=== PATIENT | female | born 1930 | race Native Hawaiian/Other Pacific Islander ===

== ENCOUNTER 2016-10-04 13:39 | Outpatient (CLI) | payer OTHER ==
[~2016-10-04 13:39] MED LIST: ALPR0.2566 PO; ALPR0.5T24 PO; AMLO5TAB PO; APRODINE1 TAB PO; BENA10TA3 PO; BENTYL10 MG PO; CARAFATE1 GM/10 ML PO; CYCL10TA35 PO; DICL75TA4 PO; DONE10TA4 PO; DRAMAMINE25 MG PO; FEMARA2.5 MG PO; METF500T PO; MISO200T2 PO; NAPROSYN375 MG PO; ONDA4TAB3 PO; PERP2TAB PO; RANI150T78 PO; SIMV20TA2 PO; TRAM50TA PO; VITAMIN D31000 UNI2 PO
== END 2016-10-04 23:47 | disposition home or self-care (01) ==
LOC: LAB 13:39
DX: N39.0 Urinary tract infection, site not specified (principal)
CPT/HCPCS: 81000; 87077; 87086; 87088; 87186

== ENCOUNTER 2016-11-07 15:25 | Outpatient (CLI) | payer OTHER | END 2016-11-07 19:24 | disposition home or self-care (01) | LOC: MAMMO 15:25 | DX: Z12.31 Encounter for screening mammogram for malignant neoplasm of breast (principal) | CPT/HCPCS: G0202-TC ==

== ENCOUNTER 2016-11-08 15:32 | Outpatient (CLI) | payer OTHER | END 2016-11-08 22:53 | disposition home or self-care (01) | LOC: LAB 15:32 | DX: E11.9 Type 2 diabetes mellitus without complications (principal); Z87.440 Personal history of urinary (tract) infections; N39.0 Urinary tract infection, site not specified | CPT/HCPCS: 81000; 87077; 87086; 87088; 87186 ==

== ENCOUNTER 2016-11-10 15:12 | Outpatient (CLI) | payer OTHER ==
[2016-11-10 15:29] LABS: PLATELET COUNT 169 K/uL (152-353)
[2016-11-10 15:42] LABS: POTASSIUM 3.1 mmol/L (3.6-5.2)
== END 2016-11-10 19:50 | disposition home or self-care (01) ==
LOC: LABW 15:12
PROVIDERS: Internal Medicine Cardiovascular Disease
DX: I10 Essential (primary) hypertension (principal); I42.9 Cardiomyopathy, unspecified
CPT/HCPCS: 36415; 80048; 85027

== ENCOUNTER 2016-12-06 13:42 | Outpatient (CLI) | payer OTHER | END 2016-12-06 19:19 | disposition home or self-care (01) | LOC: LAB 13:42 | DX: N39.0 Urinary tract infection, site not specified (principal); Z87.440 Personal history of urinary (tract) infections | CPT/HCPCS: 81000 ==

== ENCOUNTER 2017-01-05 12:29 | Outpatient (CLI) | payer OTHER | END 2017-01-05 19:11 | disposition home or self-care (01) | LOC: LAB 12:29 | DX: N39.0 Urinary tract infection, site not specified (principal); Z87.440 Personal history of urinary (tract) infections; E11.9 Type 2 diabetes mellitus without complications | CPT/HCPCS: 81000; 87086; 87088 ==

== ENCOUNTER 2017-02-01 13:58 | Outpatient (CLI) | payer OTHER | END 2017-02-01 19:50 | disposition home or self-care (01) | LOC: LAB 13:58 | DX: E11.9 Type 2 diabetes mellitus without complications (principal); Z87.440 Personal history of urinary (tract) infections | CPT/HCPCS: 81000 ==

== ENCOUNTER 2017-02-28 13:22 | Outpatient (CLI) | payer OTHER | END 2017-02-28 14:25 | disposition home or self-care (01) | LOC: LAB 13:22 | DX: E11.9 Type 2 diabetes mellitus without complications (principal); Z87.440 Personal history of urinary (tract) infections; R82.99 Other abnormal findings in urine | CPT/HCPCS: 81000; 87086; 87088 ==

== ENCOUNTER → 2017-03-13 16:52 | Outpatient (CLI) | payer OTHER | END | disposition E | LOC: AMB 16:52 ==